=== PATIENT | male | born 1950 | race Two or more races ===

== ENCOUNTER 2018-01-06 15:42 | Outpatient (CLI) | payer OTHER ==
[~2018-01-06 15:42] MED LIST: COUMADIN2 MG PO; LOPERAMIDE2 MG PO; METOPROLOL SUCC50 MG PO; QUESTRAN PACKET4 GM PO
== END 2018-01-06 16:08 | disposition home or self-care (01) ==
LOC: RAD 15:42
DX: R05 Cough (principal)

== ENCOUNTER → 2019-01-11 | Outpatient (CLI) | payer OTHER | END | disposition home or self-care (01) | LOC: NUCLEAR 07:41 | DX: I48.0 Paroxysmal atrial fibrillation (principal) ==

== ENCOUNTER 2020-02-08 07:31 | Outpatient (CLI) | payer OTHER | END 2020-02-08 07:41 | disposition home or self-care (01) | LOC: NUCLEAR 07:31 | PROVIDERS: ATTEND Internal Medicine | DX: I11.9 Hypertensive heart disease without heart failure (principal); I48.0 Paroxysmal atrial fibrillation; R07.89 Other chest pain | CPT/HCPCS: 78452; 93017; A9500 ==

== ENCOUNTER 2022-12-13 08:36 | Outpatient (CLI) | payer OTHER | END 2022-12-13 08:37 | disposition home or self-care (01) | LOC: NUCLEAR 08:36 | PROVIDERS: ATTEND Internal Medicine | DX: I48.0 Paroxysmal atrial fibrillation (principal); I65.29 Occlusion and stenosis of unspecified carotid artery ==

== ENCOUNTER 2023-04-26 13:46 | Outpatient (CLI) | payer OTHER | END 2023-04-26 13:47 | disposition home or self-care (01) | LOC: NUCLEAR 13:46 | PROVIDERS: ATTEND Internal Medicine | DX: G30.9 Alzheimer's disease, unspecified (principal) | CPT/HCPCS: 78803; A9557 ==

== ENCOUNTER 2025-04-18 08:41 | Inpatient (IN) | payer OTHER ==
[~2025-04-18] VITALS: Ht 175.3 cm; Wt 81.6 kg
[2025-04-18 10:03] LABS: BASO % 0.3 % (0.1-1.2); EOS # 0.46 (0.04-0.54); EOS % 6.9 % (0.7-7.0); LYMPH # 0.85 (1.18-3.74); LYMPH % 12.7 % (19.3-53.1); MEAN PLATELET VOLUME 12.20 fl (9.4-12.4); MONO # 0.46 (0.24-0.82); MONO % 6.9 % (4.7-12.5); NEUT # 4.88 (1.56-6.13); NEUT % 72.9 % (34.0-71.1); RED CELL DISTRIBUTION WIDTH 15.1 % (11.6-14.4)
[2025-04-18 10:18] LABS: URINE APPEARANCE Clear; URINE BILIRRUBIN Negative (NEGATIVE); URINE COLOR Dark Yellow; URINE GLUCOSE Negative (NEGATIVE); URINE KETONE Negative (NEGATIVE); URINE LEUKOCYTE Negative; URINE NITRATE Negative; URINE PROTEIN Trace (NEGATIVE); URINE UROBILINOGEN 1.0 E.U./dl
[2025-04-18 10:19] LABS: URINE BACTERIA 3.5 uL (0.0-1933); URINE BLOOD TRACES; URINE CAST 0.14 uL (0.0-1.40); URINE EPITHELIAL CELLS 3.5 uL (0.0-38.8); URINE RBC 24.1 uL (0.0-20.8); URINE WBC 1.9 uL (0.0-23.2)
[2025-04-18 10:26] LABS: ERYTHROCYTE SEDIMENTATION RATE 82 mm/hr (0-20)
[2025-04-18 10:42] LABS: D DIMER 0.5 MG/L
[2025-04-18 10:59] LABS: INR 8.0
[2025-04-18 11:05] LABS: ALT/SGPT 22.0 U/L (12-78); AST/SGOT 26.0 U/L (15-37); BILIRUBIN TOTAL 2.52 mg/dL (0.3-1.2); BUN CREA RATIO 17.0 (7.0-25.0); CREATININE SERUM 0.84 mg/dL (0.70-1.30); GFR 88.84; GLOBULINA 4.7 G/DL (2.4-3.5); GLUCOSE FASTING 181.0 mg/dL (65-100); PHOSPHOKINASE CREATININE 122.0 U/L (39-308)
[2025-04-18 11:11] LABS: OSMOLALITY SERUM 291.0 MOSM/KG (275-295)
[2025-04-18] MEDS ORDERED: PHYTONADIONE 10 MG/ML AMPUL IV ONE ×2 (12:45→13:30)
[2025-04-18] MEDS ORDERED: INSULIN LISPRO 1,000 UNIT/10 ML UNITS SUBCUTANEO PRN (13:30)
[2025-04-18] MEDS ORDERED: DEXTROSE 50 % IN WATER 0.5 G/ML DISP.SYRIN IV PRN (13:30)
[2025-04-18] MEDS ORDERED: METOPROLOL TARTRATE 50 MG TABLET PO SCH (13:32)
[2025-04-18] MEDS ORDERED: 0.9 % SODIUM CHLORIDE 1,000 ML IV SCH (13:45)
[2025-04-18 16:25] VITALS: BP 126/54; O2SAT 98
[2025-04-18 17:36] VITALS: BP 134/78
[2025-04-19 06:21] LABS: BASO % 0.3 % (0.1-1.2); EOS # 0.85 (0.04-0.54); EOS % 9.9 % (0.7-7.0); LYMPH # 1.04 (1.18-3.74); LYMPH % 12.1 % (19.3-53.1); MEAN PLATELET VOLUME 12.40 fl (9.4-12.4); MONO # 0.70 (0.24-0.82); MONO % 8.1 % (4.7-12.5); NEUT # 5.95 (1.56-6.13); NEUT % 69.4 % (34.0-71.1); RED CELL DISTRIBUTION WIDTH 15.0 % (11.6-14.4)
[2025-04-19 07:19] LABS: INR 2.48
[2025-04-19 08:31] VITALS: BP 130/75; O2SAT 96
[2025-04-20 00:17] VITALS: BP 100/53; O2SAT 99
[2025-04-20] MEDS ORDERED: PHYTONADIONE 10 MG/ML AMPUL IV SCH (09:00)
[2025-04-20 09:37] LABS: INR 2.86
[2025-04-20 09:57] VITALS: BP 135/84; O2SAT 98
[2025-04-20 16:11] VITALS: BP 117/74; O2SAT 97
[2025-04-21 01:16] VITALS: BP 114/73; O2SAT 98
[2025-04-21 08:29] VITALS: BP 127/72; O2SAT 100
[2025-04-21] MEDS ORDERED: WARFARIN SODIU2.5 MG PO (11:49)
== END 2025-04-21 14:32 | disposition home or self-care (01) | DRG 307 ==
LOC: ER 08:42 → SEC-K 13:33 → SURG 13:33 → MEDI 04-19 15:52 → SURG 04-19 17:16
PROVIDERS: General Practice; Internal Medicine; ADMIT Internal Medicine; ATTEND Internal Medicine
PROC: BW25YZZ Computerized Tomography (CT Scan) of Chest, Abdomen and Pelvis using Other Contrast (ICD-10-PCS; principal; 2025-04-18)
DX: T82.02XA Displacement of heart valve prosthesis, initial encounter (principal); I97.130 Postprocedural heart failure following cardiac surgery; T82.897A Other specified complication of cardiac prosthetic devices, implants and grafts, initial encounter; T45.514A Poisoning by anticoagulants, undetermined, initial encounter; Y65.8 Other specified misadventures during surgical and medical care; I10 Essential (primary) hypertension; R50.9 Fever, unspecified